=== PATIENT | male | born 1995 | race Caucasian/White ===

== ENCOUNTER 2022-01-21 09:14 | Outpatient (CLI) | payer SELFPAY ==
[2022-01-21 22:45] LABS: SARS-CoV-2 PCR by NAA Not Detected (NotDetected)
== END 2022-01-21 09:15 | disposition home or self-care (01) ==
LOC: LABBT 09:14
PROVIDERS: ATTEND Surgery Surgery of the Hand
DX: Z20.822 Contact with and (suspected) exposure to COVID-19 (principal)
CPT/HCPCS: U0003; U0005

== ENCOUNTER 2022-01-24 12:57 | Outpatient (CLI) | payer SELFPAY ==
[2022-01-25 12:35] LABS: SARS-CoV-2 PCR by NAA Not Detected (NotDetected)
== END 2022-01-24 12:58 | disposition home or self-care (01) ==
LOC: LABBT 12:57
PROVIDERS: ATTEND Surgery Surgery of the Hand
DX: Z20.822 Contact with and (suspected) exposure to COVID-19 (principal)
CPT/HCPCS: U0003; U0005

== ENCOUNTER → 2022-01-24 | Day surgery (SDC) | payer OTHER ==
[2022-01-21 09:56] VITALS: BMI 31.4
[~2022-01-24] MED LIST: Bupivacaine 0.25% 10 ML VIAL ONE; Lidocaine 1% (PF) 30 ML VIAL ONE
== END | disposition home or self-care (01) ==
LOC: SDC 10:19
PROVIDERS: ATTEND Surgery Surgery of the Hand
DX: S62.102A Fracture of unspecified carpal bone, left wrist, initial encounter for closed fracture (principal); Z53.9 Procedure and treatment not carried out, unspecified reason
CPT/HCPCS: J2001; S0020

== ENCOUNTER 2022-01-29 10:23 | Day surgery (SDC) | payer OTHER ==
[2022-01-29] MEDS ORDERED: Midazolam HCl 2 mg/2 ml Vial ONE ×2 (11:22→12:32)
[2022-01-29] MEDS ORDERED: Fentanyl 100 MCG/2 ML VIAL ONE ×3 (11:22→15:38)
[2022-01-29] MEDS ORDERED: Bupivacaine HCl 0.5%/Epinephrine 1:200,000/PF 30 ml Vial ONE (11:35)
[2022-01-29] MEDS ORDERED: ceFAZolin (BATCH) 2 GM/100 ML BAG ONE (12:30)
[2022-01-29] MEDS ORDERED: fentaNYL Citrate/PF 100 MCG/2 ML SYRINGE ONE (12:32)
[2022-01-29] MEDS ORDERED: Famotidine/PF 20 mg/2ml Vial ONE (12:32)
[2022-01-29] MEDS ORDERED: Ketorolac Tromethamine 30 MG/ML VIAL ONE (12:42)
[2022-01-29] MEDS ORDERED: Ondansetron PF 4 MG/2 ML Vial ONE (12:42)
[2022-01-29] MEDS ORDERED: Lidocaine 1% PF 5 ML VIAL ONE (12:42)
[2022-01-29] MEDS ORDERED: Dexamethasone 20 MG/5 ML VIAL ONE (12:42)
[2022-01-29] MEDS ORDERED: PROPOFOL 200 MG/20 ML VIAL ONE (12:42)
[2022-01-29] MEDS ORDERED: ePHEDrine 50 MG/ML VIAL ONE (12:42)
== END 2022-01-29 16:40 | disposition home or self-care (01) ==
LOC: SDC 10:23
PROVIDERS: ATTEND Surgery Surgery of the Hand
PROC: 3E0T3BZ Introduction of Anesthetic Agent into Peripheral Nerves and Plexi, Percutaneous Approach (ICD-10-PCS; principal; 2022-01-29)
PROC: 0PSJ04Z Reposition Left Radius with Internal Fixation Device, Open Approach (ICD-10-PCS; principal; 2022-01-29)
DX: S52.572A Other intraarticular fracture of lower end of left radius, initial encounter for closed fracture (principal); S52.612A Displaced fracture of left ulna styloid process, initial encounter for closed fracture; X58.XXXA Exposure to other specified factors, initial encounter
CPT/HCPCS: 76000; C1713; J0690; J1100; J1885; J2250; J2405; J2704; J3010; J3490; S0028